=== PATIENT | female | born 2000 | race Caucasian/White ===

== ENCOUNTER 2021-01-15 07:35 | Emergency (ER) | payer BC ==
[~2021-01-15] VITALS: Ht 165.1 cm; Wt 87.8 kg
[2021-01-15 08:12] VITALS: BP 140/82
--- NOTE | 2021-01-15 08:25 | PHYS DOC ---
Past History Past Surgical History: No Surgical History Adult General Chief Complaint Chief Complaint: VAGINAL BLEEDING [place] Patient is a 20-year-old female presenting for vaginal bleeding. Reports this is painless and started this morning. She is at approximately 7 weeks based on last menstrual period. Reports she took at home beta-hCG testing and beta hCG was 1800 ~2 days ago. Reports painless spotting that was first noticed this morning when using the bathroom. Reports she had brown blood present on pads when she woke up which concerned her and when she went to urinate, noticed bright red blood without clots or passage of tissue. No known medical issues. She has been taking daily prenatals, no alcohol or drug use. This is an unplanned . No trauma or other medications or concerning exposures Review of Systems Review of Systems Fourteen body systems of review of systems have been reviewed. See HPI for pertinent positives and negative responses, other patel all other systems are negative, non-pertinent or non-contributory Allergies Allergies Allergies Coded Allergies Type Severity Reaction Last Updated Verified No Known Drug Allergies 01/15/21 No Physical Exam Physical Exam Constitutional: Well developed, well nourished, no acute distress, non-toxic appearance. HENT: Normocephalic, atraumatic, bilateral external ears normal, oropharynx moist, no oral exudates, nose normal. Eyes: PERRLA, EOMI, conjunctiva normal, no discharge. Neck: Normal range of motion, no tenderness, supple, no stridor. Cardiovascular: Heart rate regular, sinus rhythm, no murmurs rubs or gallops Lungs & Thorax: Bilateral breath sounds clear to auscultation Abdomen: Bowel sounds normal, soft, no tenderness, no masses, no pulsatile masses. Nonsurgical abdomen, no peritoneal signs Skin: Warm, dry, no erythema, no rash. Back: No tenderness, no CVA tenderness. Extremities: No tenderness, no cyanosis, no clubbing, ROM intact, no edema. Neurologic: Alert and oriented X 3, grossly normal motor & sensory function, no focal deficits noted. Psychologic: Affect normal, judgement normal, mood normal. Current Patient Data Vital Signs Vital Signs Date Time Temp Pulse Resp B/P (MAP) Pulse Ox O2 Delivery O2 Flow Rate FiO2 01/15/21 08:12 105 20 140/82 99 Lab Results Laboratory Tests Test 01/15/21 08:00 01/15/21 08:35 Urine Collection Type Unknown Urine Color Yellow Urine Clarity Hazy Urine pH 5.5 Urine Specific [place] 1.025 Urine Protein Neg Urine Glucose (UA) Neg mg/dL Urine Ketones (Stick) Neg mg/dL Urine Blood Large Urine Nitrite Neg Urine Bilirubin Neg Urine Urobilinogen Dipstick 0.2 mg/dL Urine Leukocyte Esterase Neg Urine RBC 11-20 /HPF Urine WBC 1-4 /HPF Urine Squamous Epithelial Cells Mod /LPF Urine Amorphous Sediment Present /HPF Urine Bacteria Mod /HPF Urine Mucus Slight /LPF White Blood Count 7.0 x10^3/uL Red Blood Count 4.36 x10^6/uL Hemoglobin 13.4 g/dL Hematocrit 38.9 % Mean Corpuscular Volume 89 fL Mean Corpuscular Hemoglobin 31 pg Mean Corpuscular Hemoglobin Concent 34 g/dL Red Cell Distribution Width 12.4 % Platelet Count 216 x10^3/uL Neutrophils (%) (Auto) 67 % Lymphocytes (%) (Auto) 25 % Monocytes (%) (Auto) 8 % Eosinophils (%) (Auto) 1 % Basophils (%) (Auto) 0 % Neutrophils # (Auto) 4.7 x10^3uL Lymphocytes # (Auto) 1.7 x10^3/uL Monocytes # (Auto) 0.5 x10^3/uL Eosinophils # (Auto) 0.1 x10^3/uL Basophils # (Auto) 0.0 x10^3/uL Maternal Serum HCG Beta Subunit 53421 mIU/mL Sodium Level 137 mmol/L Potassium Level 3.6 mmol/L Chloride Level 105 mmol/L Carbon Dioxide Level 26 mmol/L Anion Gap 6 Blood Urea Nitrogen 8 mg/dL Creatinine 0.6 mg/dL Estimated GFR (Cockcroft-Gault) 127.5 Glucose Level 96 mg/dL Calcium Level 8.1 mg/dL EKG EKG [] Radiology/Procedures Radiology/Procedures EXAM: Obstetrics sonogram. HISTORY: Vaginal bleeding. TECHNIQUE: Transabdominal and transvaginal sonographic imaging of the pelvis was performed. COMPARISON: None. FINDINGS: The uterus measures 7.6 x 6.6 x 2.8 cm. The uterus appears to be bicornuate. There is a gestational sac within the left uterine horn with a mean sac diameter of 1.5 cm, corresponding with a gestational age of 6 weeks and 2 days. Gestational sac is abnormal in configuration. No normal-appearing yolk sac is seen. No pole is seen. There is a small complex fluid collection with suspected debris within the right uterine horn with surrounding heterogeneous endometrium or decidual reaction. The ovaries are normal in size and demonstrate normal blood flow. There is a small amount of pelvic free fluid. IMPRESSION: 1. Suspected abnormal gestational sac within the left horn of a bicornuate uterus, demonstrating a mean sac diameter which corresponds with a gestational age of 6 weeks and 2 days. The gestational sac is abnormal in configuration and no normal yolk sac is seen. No pole is seen. Correlate with serial beta hCG levels. If the levels are increasing, short-term sonographic follow-up in one week is recommended. 2. Small complex fluid collection with surrounding heterogeneous endometrium or decidual reaction within the right uterine horn. Attention at the time of follow-up is recommended to exclude the possibility of an additional abnormal early gestational sac or molar . 3. Small amount of pelvic free fluid. Electronically signed by: Lela Lamb MD (01/15/2021 9:27 AM) [id number] Heart Score C/O Chest Pain: No Risk Factors: Risk Factors: DM, Current or recent (<one month) smoker, HTN, HLP, family history of CAD, obesity. Risk Scores: Risk Factors: DM, Current or recent (<one month) smoker, HTN, HLP, family history of CAD, obesity. Course & Med Decision Making Course & Med Decision Making Vitals stable. HPI physical exam and comprehensive ER work-up nonconcerning for any emergent or surgical issues. I reviewed ER findings in its entirety to patient with good understanding She understands need for close follow-up for repeat beta-hCG and repeat ultrasonography. She has outpatient follow-up with [facility] scheduled January 26 but I advised her to contact them immediately after ER departure today to review need to bump this up No bleeding during ER visit today. Patient deferred pelvic exam until repeat lab and ultrasonography which I feel is appropriate as it will not change my management. Advised her to continue taking her Strict return precautions were given to patient and with good understanding, all questions and concerns addressed prior to ER departure Dragon Disclaimer Dragon Disclaimer This electronic medical record was generated, in whole or in part, using a voice recognition dictation system. Departure Departure: Impression: Primary Impression: Vaginal bleeding in patient at less than 20 weeks gestation Disposition: HOME / SELF CARE / HOMELESS Condition: STABLE Referrals: MICHEAL MEADOWS (PCP) Additional Instructions: You were seen for vaginal bleeding. While the etiology of your bleeding is not precisely known at this time, further studies are needed to find the answer to this issue. The [facility] doctors want to see you in the clinic. You may be starting your period. You need to return to the ED immediately if you develop worsening pain, heavy vaginal bleeding, chest pain, shortness of breath, excess manish fatigue, lightheadedness, or any other new or concerning symptoms. KEVIN CASIANO DO Jan 15, 2021 08:25
[2021-01-15 08:36] LABS: BILIRUBIN,URINE NEG (NEG); CLARITY,URINE HAZY; COLOR,URINE YELLOW; GLUCOSE,URINE NEG (NEG); NITRITE,URINE NEG (NEG); UROBILINOGEN,URINE 0.2 mg/dL (0.2 mg/dL)
[2021-01-15 08:42] LABS: AMORPHOUS SEDIMENT,UR PRESENT /HPF; BACTERIA,URINE MOD /HPF (0-FEW); SQUAMOUS EPITHELIAL CELL,UR MOD /LPF
[2021-01-15 08:49] LABS: BASO % 0 % (0-3); EOS # 0.1 x10^3/uL (0.0-0.7); EOS % 1 % (0-3); HEMATOCRIT 38.9 % (36.0-47.0); HEMOGLOBIN 13.4 g/dL (12.0-15.5); LYMPH # 1.7 x10^3/uL (1.0-4.8); LYMPH % 25 % (24-48); MEAN CORPUSCULAR HEMOGLOBIN 31 pg (25-35); MEAN CORPUSCULAR HGB CONC 34 g/dL (31-37); MEAN CORPUSCULAR VOLUME 89 fL (79-100); MONO # 0.5 x10^3/uL (0.0-1.1); MONO % 8 % (0-9); NEUT # 4.7 x10^3uL (1.8-7.7); NEUT % 67 % (31-73); PLATELET COUNT 216 x10^3/uL (140-400); RED BLOOD COUNT 4.36 x10^6/uL (3.50-5.40); RED CELL DISTRIBUTION WIDTH 12.4 % (11.5-14.5)
[2021-01-15 08:57] LABS: CALCIUM 8.1 mg/dL (8.5-10.1); CREATININE 0.6 mg/dL (0.6-1.0); GFR 127.5; POTASSIUM 3.6 mmol/L (3.5-5.1)
--- NOTE | 2021-01-15 09:30 | RAD ---
EXAM: Obstetrics sonogram. HISTORY: Vaginal bleeding. TECHNIQUE: Transabdominal and transvaginal sonographic imaging of the pelvis was performed. COMPARISON: None. FINDINGS: The uterus measures 7.6 x 6.6 x 2.8 cm. The uterus appears to be bicornuate. There is a ges tational sac within the left uterine horn with a mean sac diameter of 1.5 cm, corresponding with a ge stational age of 6 weeks and 2 days. Gestational sac is abnormal in configuration. No normal-appearin g yolk sac is seen. No pole is seen. There is a small complex fluid collection with suspected d ebris within the right uterine horn with surrounding heterogeneous endometrium or decidual reaction. The ovaries are normal in size and demonstrate normal blood flow. There is a small amount of pelvic f ree fluid. IMPRESSION: 1. Suspected abnormal gestational sac within the left horn of a bicornuate uterus, demonstrating a me an sac diameter which corresponds with a gestational age of 6 weeks and 2 days. The gestational sac i s abnormal in configuration and no normal yolk sac is seen. No pole is seen. Correlate with ser ial beta hCG levels. If the levels are increasing, short-term sonographic follow-up in one week is re commended. 2. Small complex fluid collection with surrounding heterogeneous endometrium or decidual reaction wit hin the right uterine horn. Attention at the time of follow-up is recommended to exclude the possibil ity of an additional abnormal early gestational sac or molar . 3. Small amount of pelvic free fluid. Electronically signed by: Lela Lamb MD (01/15/2021 9:27 AM) [id number]
== END 2021-01-15 10:35 | disposition home or self-care (01) ==
LOC: ER 07:35
DX: O20.8 Other hemorrhage in early pregnancy (principal); Z3A.01 Less than 8 weeks gestation of pregnancy
CPT/HCPCS: 36415; 76801; 76817; 80048; 81001; 84702; 85025; 87086; 99284-25